=== PATIENT | male | born 1960 | race American Indian/Alaskan Native ===

== ENCOUNTER 2017-01-06 07:02 | Outpatient (CLI) | payer BC ==
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
== END 2017-01-06 07:03 | disposition home or self-care (01) ==
LOC: FLUORO 07:02
PROVIDERS: ATTEND Internal Medicine Gastroenterology
DX: K42.9 Umbilical hernia without obstruction or gangrene (principal); K43.9 Ventral hernia without obstruction or gangrene; K44.9 Diaphragmatic hernia without obstruction or gangrene
CPT/HCPCS: 74247

== ENCOUNTER 2018-11-01 12:13 | Emergency (ER) | payer BC ==
[2018-11-01 12:24] VITALS: BP 120/62
--- NOTE | 2018-11-01 12:56 | XRay Report ---
LEFT WRIST, 2 VIEWS History: Trauma, pain, swelling Findings: A comminuted, mildly displaced and impacted fracture is identified at the distal radius. There is intra-articular extension at the radiocarpal joint. The carpal bones are grossly intact. A displaced ulnar styloid fracture is also identified. There is diffuse soft tissue swelling. Impression: Severely comminuted distal radius fracture with intra-articular extension. Ulnar styloid fracture.
[2018-11-01] MEDS ORDERED: PERCOCET 5/325 PO ONE (13:19)
--- NOTE | 2018-11-01 13:19 | Emergency Department Report ---
ED Upper Extremity Inj HPI - General Chief Complaint: Extremity Injury, Upper Stated Complaint: BROKEN WRIST Time Seen by Provider: 11/01/18 13:19 Source: patient Mode of arrival: Ambulatory Limitations: No Limitations - Related Data Previous Rx's Medication Instructions Recorded Last Taken Type HYDROcodone/ACETAMINOPHEN 1 each PO Q8H PRN #9 tablet 11/01/18 Unknown Rx [Hydrocodone-Acetamin 10-325 mg] Allergies Allergy/AdvReac Type Severity Reaction Status Date / Time No Known Allergies Allergy Unverified 01/06/17 07:06 ED Review of Systems ROS: Stated complaint: BROKEN WRIST Other details as noted in HPI ED Past Medical Hx - Social History Smoking Status: Never Smoker Substance Use Type: None - Medications Home Medications: Home Medications Medication Instructions Recorded Confirmed Last Taken Type HYDROcodone/ACETAMINOPHEN 1 each PO Q8H PRN #9 tablet 11/01/18 Unknown Rx [Hydrocodone-Acetamin 10-325 mg] ED Physical Exam - General Limitations: No Limitations ED Course Vital Signs 11/01/18 11/01/18 12:24 12:29 Temperature 97.7 F 97.7 F Pulse Rate 50 L 50 L Respiratory 18 20 Rate Blood Pressure 120/62 Blood Pressure 120/62 [Right] O2 Sat by Pulse 96 96 Oximetry Critical care attestation.: If time is entered above; I have spent that time in minutes in the direct care of this critically ill patient, excluding procedure time. ED Disposition Clinical Impression: Radius and ulna distal fracture Disposition: DC-01 TO HOME OR SELFCARE Is pt being admited?: No Does the pt Need Aspirin: No Condition: Stable Instructions: Wrist Fracture in Adults (ED) Additional Instructions: motrin or tylenol for mild pain lortab for severe pain call Dr Marte in the AM for follow up he is expecting your call ice elevate rest do not remove splint do not get it wet Referrals: DONOVAN MARTE MD [Staff Physician] - 3-5 Days Time of Disposition: 14:40
[2018-11-01] MEDS ORDERED: XYLOCAINE 2% INFILTRATI ONE (13:25)
[2018-11-01] MEDS ORDERED: DILAUDID IM ONE (13:25)
[2018-11-01] MEDS ORDERED: MARCAINE 0.5% INFILTRATI ONE (13:25)
[2018-11-01] MEDS ORDERED: IBUPROFEN PO ONE (14:40)
== END 2018-11-01 15:07 | disposition home or self-care (01) ==
LOC: ED 12:13
DX: S52.602A Unspecified fracture of lower end of left ulna, initial encounter for closed fracture (principal); S52.502A Unspecified fracture of the lower end of left radius, initial encounter for closed fracture; W11.XXXA Fall on and from ladder, initial encounter; Y93.89 Activity, other specified; Y92.89 Other specified places as the place of occurrence of the external cause; Y99.8 Other external cause status
CPT/HCPCS: 29125; 73100; 96372; 99284; J1170

== ENCOUNTER 2018-11-10 05:57 | Day surgery (SDC) | payer BC ==
[~2018-11-10 05:57] MED LIST: ANCEF/STERILE WATER 2 GM/20 ML IV NR
[2018-11-10] MEDS ORDERED: SUBLIMAZE IV PRN (06:00)
[2018-11-10] MEDS ORDERED: VERSED IV NR (06:00)
[2018-11-10] MEDS ORDERED: LACTATED RINGERS 1,000 ML IV SCH (06:00)
[2018-11-10] MEDS ORDERED: NACL BACTERIOSTATIC INFILTRATI ONE (06:46)
[2018-11-10] MEDS ORDERED: MARCAINE 0.5% INFILTRATI ONE (07:10)
[2018-11-10] MEDS ORDERED: MARCAINE 0.25% INFILTRATI ONE ×2 (07:30→09:40)
[2018-11-10] MEDS ORDERED: NEOSPORIN GU IR ONE (07:30)
[2018-11-10] MEDS ORDERED: DIPRIVAN 10 MG/ML IV ONE (07:54)
[2018-11-10] MEDS ORDERED: SUBLIMAZE ONE (07:55)
[2018-11-10] MEDS ORDERED: PERCOCET 5/325 PO PRN (08:32)
--- NOTE | 2018-11-10 08:32 | Anesthesia Day of Surgery ---
Anesthesia Day of Surgery - Day of Surgery Patient Examined: Yes Patient H&P Reviewed: Yes Patient is NPO: Yes
--- NOTE | 2018-11-10 08:32 | Anesthesia Consultation ---
Anesthesia Consult and Med Hx Date of service: 11/10/18 - Airway Anesthetic Teeth Evaluation: Good ROM Head & Neck: Adequate Mental/Hyoid Distance: Adequate Mallampati Class: Class III Intubation Access Assessment: Possibly Difficult - Pulmonary Exam CTA: Yes - Cardiac Exam Cardiac Exam: RRR - Pre-Operative Health Status ASA Pre-Surgery Classification: ASA3 Proposed Anesthetic Plan: General Nerve Block: Axillary - Pulmonary Hx Smoking: No Hx Respiratory Symptoms: No Hx Sleep Apnea: No (ANDRAE PRE SCREEN HIGH RISK) - Cardiovascular System Hx Hypertension: Yes (recently elevated but denies formal diagnosis or treatment) Hx Heart Attack/AMI: No Hx Percutaneous Transluminal Coronary Angioplasty (PTCA): No Hx Cardia Arrhythmia: No - Central Nervous System CVA: No - Gastrointestinal Hx Gastroesophageal Reflux Disease: Yes (well controlled) - Endocrine Hx Renal Disease: No Hx Liver Disease: No Hx Insulin Dependent Diabetes: No Hx Non-Insulin Dependent Diabetes: No Hx Thyroid Disease: No - Other Systems Hx Cancer: No Hx Obesity: Yes - Additional Comments Anesthesia Medical History Comments: No hx anesthetic complications. Consented for regional block for post op analgesia.
[2018-11-10] MEDS ORDERED: ZOFRAN ONE (08:44)
[2018-11-10] MEDS ORDERED: XYLOCAINE MPF 2% ONE (08:44)
[2018-11-10] MEDS ORDERED: XYLOCAINE CARDIAC IV ONE (08:44)
[2018-11-10] MEDS ORDERED: NACL 0.9% IR ONE (08:45)
--- NOTE | 2018-11-10 09:45 | Procedure Note ---
Date of procedure: 11/10/18 Pre-op diagnosis: displaced left distal radius fracture Post-op diagnosis: same Procedure: Open reduction internal fixation left distal radius Procedure The patient was brought to the OR placed in the OR table in supine position following induction and intubation by anesthesia the patient's left upper extremity was prepped and draped in the usual sterile manner A timeout procedure was done to identify the patient and the correct operative site. The arm was exsanguinated followed by inflation of the pneumatic tourniquet to 250 mmHg. A volar incision was made along the distal radius as is taken down sharply through skin and subcutaneous the flexor carpi radialis tendon was seen next the incision was carried deep to this structure we encountered the quadratus tendon this was then debrided from the distal radius using a periosteal elevator the fr acture site was seen she was noted to have a small comminuted fragment along the volar surface after the gentle manipulation the fracture fragments were reduced into a more anatomic position next the left distal radius locking plate was applied via C-arm care was taken to insert both locking and nonlocking screws of various lengths AP and lateral views were obtained showing good reduction at the fracture and in placement of our hardware the wrist was taken through a range of motion and was found to be stable next the wound was copiously irrigated and was closed in a standard routine fashion. Dressings were applied as well as a well- padded volar splint the patient tolerated the procedure there were no complications and she was sent to postanesthesia recovery in a stable condition Anesthesia: MAC, regional Surgeon: DONOVAN COLLINS Telegrapher Agent: KYE ROBERTS Estimated blood loss: minimal Pathology: none Condition: stable Disposition: PACU
[2018-11-10] MEDS: SUBLIMAZE IV PRN ×2 (09:54→10:00)
[2018-11-10] MEDS: DILAUDID IV PRN ×2 (10:19→10:30)
[2018-11-10] MEDS ORDERED: DILAUDID ONE (10:21)
[2018-11-10] MEDS ORDERED: TORADOL IV PRN (10:49)
[2018-11-10] MEDS ORDERED: APRESOLINE IV PRN (10:50)
[2018-11-10 11:35] VITALS: BP 159/85
--- NOTE | 2018-11-10 17:00 | Post Anesthesia Evaluation ---
- Post Anesthesia Evaluation Patient Participated: Yes Airway Patent: Yes Stable Respiratory Function: Yes Nausea/Vomiting: No Temp > 96.8F: Yes Pain Manageable: Yes Adequeate Hydration: Yes Anesthesia Complications: No Block Receding Appropriately: Yes Other Comments: Post op pain initially uncontrolled despite block. Pain adequately controlled with IV/PO analgesics prior to d/c.
--- NOTE | 2018-11-11 07:28 | XRay Report ---
INTRAOPERATIVE LEFT WRIST RADIOGRAPHS INDICATION: Left wrist fracture. COMPARISON: 11/01/2018. IMAGES/CINE CLIPS: 2 FINDINGS: Intraoperative fluoroscopic guidance provided for Dr. Marte. AP and lateral images demonstrate interval plate and screw stabilization repair of comminuted distal radius fracture. Bony detail limited, though overall appearance grossly stable. CONCLUSION: Intraoperative fluoroscopic guidance provided, as described. Thank you for the opportunity to participate in this patient's care.
== END 2018-11-10 05:58 | disposition home or self-care (01) ==
LOC: OR 05:57
PROVIDERS: ATTEND Orthopaedic Surgery
DX: S52.592A Other fractures of lower end of left radius, initial encounter for closed fracture (principal); I10 Essential (primary) hypertension; K21.9 Gastro-esophageal reflux disease without esophagitis; E66.9 Obesity, unspecified; M19.90 Unspecified osteoarthritis, unspecified site; Z79.899 Other long term (current) drug therapy; Z68.39 Body mass index [BMI] 39.0-39.9, adult; Z80.8 Family history of malignant neoplasm of other organs or systems; X58.XXXA Exposure to other specified factors, initial encounter; Y93.89 Activity, other specified; Y92.89 Other specified places as the place of occurrence of the external cause; Y99.8 Other external cause status
CPT/HCPCS: 25609; 64417; 73100; C1713; J0360; J0690; J1170; J1885; J2250; J2405; J2704; J3010; J7120; J2001

== ENCOUNTER 2019-03-20 08:56 | Outpatient (CLI) | payer BC ==
[2019-03-20 11:05] LABS: Hematocrit 40.2 % (35.5-45.6); Hemoglobin 13.1 gm/dl (11.8-15.2); Mean Corpuscular HGB Conc 33 % (32-34); Mean Corpuscular Volume 87 fl (84-94); Red Blood Count 4.64 M/mm3 (3.65-5.03); Red Cell Distribution Width 12.8 % (13.2-15.2)
[2019-03-20 11:22] LABS: Alanine Aminotransferase 37 units/L (7-56); Albumin 4.3 g/dL (3.9-5); BUN/Creatinine Ratio 18; Blood Urea Nitrogen 16 mg/dL (9-20); Calcium 9.5 mg/dL (8.4-10.2); Chol/HDL Ratio 3.27 %; HDL Cholesterol 58 mg/dL (40-59); Hemolysis Index 15; LDL Cholesterol,Direct 134 mg/dL (50-130)
[2019-03-20 12:45] LABS: Platelet Count 213 K/mm3 (140-440)
[2019-03-23 12:36] LABS: Vitamin D, 25-OH, D2 <4 ng/mL
== END 2019-03-20 08:57 | disposition home or self-care (01) ==
LOC: LAB 08:56
PROVIDERS: ATTEND Internal Medicine
DX: Z13.1 Encounter for screening for diabetes mellitus (principal); Z13.21 Encounter for screening for nutritional disorder; Z13.220 Encounter for screening for lipoid disorders; I10 Essential (primary) hypertension; K21.9 Gastro-esophageal reflux disease without esophagitis; E66.9 Obesity, unspecified
CPT/HCPCS: 36415; 80053; 80061; 82306; 82607; 83036; 84153; 84443; 85027

== ENCOUNTER 2019-03-21 13:35 | Outpatient (CLI) | payer BC ==
--- NOTE | 2019-03-21 14:49 | XRay Report ---
LEFT WRIST 4 VIEWS INDICATION / CLINICAL INFORMATION: Left wrist pain. COMPARISON: 11/01/2018. FINDINGS: BONES / JOINT(S): A ventral metallic plate and screws transfix the distal radius, unchanged since the postoperative study from 11/10/2018. There is an ununited, displaced fracture of the ulnar styloid. T here is periarticular osteopenia involving the wrist and hand. I see no evidence of dislocation. SOFT TISSUES: No significant abnormality. ADDITIONAL FINDINGS: None. IMPRESSION: 1. Internal fixation of the distal radial fracture has not changed. Displaced fracture of the ulnar s tyloid is again noted. 2. 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 Signer Name: Sean Galvez MD Signed: 03/21/2019 2:44 PM Workstation Name: [id number]
== END 2019-03-21 13:36 | disposition home or self-care (01) ==
LOC: XRAY 13:35
PROVIDERS: ATTEND Orthopaedic Surgery
DX: S52.502A Unspecified fracture of the lower end of left radius, initial encounter for closed fracture (principal); I10 Essential (primary) hypertension; K21.9 Gastro-esophageal reflux disease without esophagitis; X58.XXXA Exposure to other specified factors, initial encounter; Y93.89 Activity, other specified; Y92.89 Other specified places as the place of occurrence of the external cause; Y99.8 Other external cause status

== ENCOUNTER 2020-11-08 10:45 | Outpatient (CLI) | payer OTHER ==
[2020-11-08 11:19] LABS: Basophils # (Auto) 0.1 K/mm3 (0.0-0.1); Basophils % (Auto) 1.5 % (0.0-1.8); Eosinophils # (Auto) 0.1 K/mm3 (0.0-0.4); Eosinophils % (Auto) 2.5 % (0.0-4.3); Hematocrit 38.7 % (35.5-45.6); Hemoglobin 12.5 gm/dl (11.8-15.2); Lymphocytes # (Auto) 1.1 K/mm3 (1.2-5.4); Lymphocytes % (Auto) 21.3 % (13.4-35.0); Mean Corpuscular HGB Conc 32 % (32-34); Mean Corpuscular Volume 86 fl (84-94); Monocytes # (Auto) 0.6 K/mm3 (0.0-0.8); Monocytes % (Auto) 12.7 % (0.0-7.3); Platelet Count 200 K/mm3 (140-440); Red Blood Count 4.49 M/mm3 (3.65-5.03); Red Cell Distribution Width 13.3 % (13.2-15.2)
[2020-11-08 11:34] LABS: Albumin 3.7 g/dL (3.9-5); BUN/Creatinine Ratio 11; Blood Urea Nitrogen 10 mg/dL (9-20); Calcium 8.8 mg/dL (8.4-10.2); Chol/HDL Ratio 2.63 %; HDL Cholesterol 71 mg/dL (40-59); Hemolysis Index 13; LDL Cholesterol,Direct 116 mg/dL (50-130)
[2020-11-08 11:40] LABS: Alanine Aminotransferase < 5 units/L (7-56)
[2020-11-08 12:24] LABS: Bilirubin,Urine NEG (Negative); Blood,Urine NEG (Negative); Color,Urine Yellow (Yellow); Mucus,Urine FEW /HPF; Protein,Urine <15 mg/dL mg/dL (Negative); Urobilinogen,Urine < 2.0 mg/dL (<2.0); WBC,Urine < 1.0 /HPF (0.0-6.0)
== END 2020-11-08 10:46 | disposition home or self-care (01) ==
LOC: LAB 10:45
PROVIDERS: ATTEND Internal Medicine
DX: Z13.29 Encounter for screening for other suspected endocrine disorder (principal); Z00.00 Encounter for general adult medical examination without abnormal findings; R73.9 Hyperglycemia, unspecified; E78.5 Hyperlipidemia, unspecified; E55.9 Vitamin D deficiency, unspecified; N39.0 Urinary tract infection, site not specified; D51.9 Vitamin B12 deficiency anemia, unspecified
CPT/HCPCS: 36415; 80053; 80061; 81001; 82306; 82607; 83036; 84153; 84443; 85025

== ENCOUNTER 2021-03-28 12:13 | Outpatient (CLI) | payer OTHER ==
--- NOTE | 2021-03-28 15:37 | Vascular Lab Report ---
DUPLEX DOPPLER UPPER EXTREMITY ARTERIAL, RIGHT INDICATION / CLINICAL INFORMATION: pvd. Intermittent numbness in rt,arm/hand/fingers for a month. hx of morbid obesity,hernia surgery,htn,non smoker. TECHNIQUE: Arterial duplex examination of the right upper extremity performed using B-mode, color lilliana w and spectral Doppler assessment. FINDINGS: RIGHT: - Atherosclerotic Plaque: No significant atherosclerotic plaque. - Elevated Velocity (>200 cm/s): None. - Abnormal Waveform: None. ADDITIONAL FINDINGS: None. IMPRESSION: 1. No significant upper extremity peripheral artery disease. Ankle-Brachial Index (RENE): - Calcified arteries > 1.4 - Normal = 0.9-1.4 - Mild PAD = 0.7-0.89 - Moderate PAD = 0.51-0.69 - Severe PAD < 0.5 Doppler Waveform: - Triphasic is normal. - Biphasic is abnormal if clear transition from triphasic signal along vascular tree. - Monophasic is abnormal. Signer Name: Nitish Hernandez MD Signed: 03/28/2021 3:33 PM Workstation Name: [id number]
== END 2021-03-28 12:14 | disposition home or self-care (01) ==
LOC: VAS 12:13
PROVIDERS: ATTEND Internal Medicine
DX: I73.9 Peripheral vascular disease, unspecified (principal)

== ENCOUNTER 2021-11-14 12:01 | Outpatient (CLI) | payer OTHER ==
[2021-11-14 13:02] LABS: Basophils % (Auto) 0.7 % (0.0-1.8); Eosinophils # (Auto) 0.1 K/mm3 (0.0-0.4); Eosinophils % (Auto) 2.4 % (0.0-4.3); Hematocrit 39.4 % (35.5-45.6); Hemoglobin 12.4 gm/dl (11.8-15.2); Lymphocytes # (Auto) 1.3 K/mm3 (1.2-5.4); Lymphocytes % (Auto) 28.6 % (13.4-35.0); Mean Corpuscular HGB Conc 31 % (32-34); Mean Corpuscular Volume 87 fl (84-94); Monocytes # (Auto) 0.5 K/mm3 (0.0-0.8); Monocytes % (Auto) 11.2 % (0.0-7.3); Platelet Count 212 K/mm3 (140-440); Red Blood Count 4.53 M/mm3 (3.65-5.03); Red Cell Distribution Width 13.4 % (13.2-15.2)
[2021-11-14 13:24] LABS: Alanine Aminotransferase 15 units/L (7-56); Albumin 4.2 g/dL (3.9-5); BUN/Creatinine Ratio 16; Blood Urea Nitrogen 13 mg/dL (9-20); Calcium 9.5 mg/dL (8.4-10.2); Chol/HDL Ratio 3.14 %; HDL Cholesterol 67 mg/dL (40-59); Hemolysis Index 3; LDL Cholesterol,Direct 129 mg/dL (50-130)
== END 2021-11-14 12:02 | disposition home or self-care (01) ==
LOC: LAB 12:01
PROVIDERS: ATTEND Internal Medicine
DX: Z00.00 Encounter for general adult medical examination without abnormal findings (principal); I10 Essential (primary) hypertension; E66.01 Morbid (severe) obesity due to excess calories; R39.11 Hesitancy of micturition; R20.2 Paresthesia of skin
CPT/HCPCS: 36415; 80053; 80061; 82652; 83036; 84443; 85025

== ENCOUNTER 2022-04-24 13:08 | Outpatient (CLI) | payer OTHER ==
[2022-04-24 14:28] LABS: Chol/HDL Ratio 2.84 %
== END 2022-04-24 13:09 | disposition home or self-care (01) ==
LOC: LAB 13:08
PROVIDERS: ATTEND Internal Medicine
DX: E78.5 Hyperlipidemia, unspecified (principal); R39.11 Hesitancy of micturition
CPT/HCPCS: 36415; 80061; 84153